=== PATIENT | female | born 1940 | race Caucasian/White ===

== ENCOUNTER 2016-06-23 20:50 | Emergency (ER) ==
[2016-06-23 21:18] VITALS: TEMP 89; BMI 34.9
--- NOTE | 2016-06-23 22:10 | ED.PDOC ---
General ED Provider: Dr. GALDINO HERNANDEZ Chief Complaint: Cardiac Arrest Stated Complaint: Brought by [facility]. Pt. was at latter day. Family said she should have been home so he went there and had to wait for someone to get the yanes to unlock the door. Family says she must have fallen down the stairs and was found face down with no respirations/heart rate. CPR started by [facility] and continued for 29 min. until arrival to [facility] at 2047. CPR in progress. Time Seen by Physician: 22:07 Mode of Arrival: Ambulance Information Source: Family, EMT Exam Limitations: Clinical condition Nursing and Triage Documentation Reviewed and Agree: Yes Cardiac Resuscitation - Cardiac Resuscitation Onset/Duration: Minutes (50), Prior to arrival Witnessed Arrest: No Down-time Before BLS Initiated: 30 Down-time Before ALS Initiated: 30 Airway Prehospital Findings: Reports: Obstructed Breathing Prehospital Findings: Reports: Apnea Circulation/Rhythm Prehospital Findings: Reports: Pulses absent, Asystole Disability/Neurological Prehospital Findings: Reports: Unresponsive Airway Prehospital Intervention: Reports: Chin lift Breathing Prehospital Intervention: Reports: Intubation (with carmel tube ) Circulation/Rhythm Prehospital Intervention: Reports: Chest compressions, Epinephrine (x 5) Airway Prehospital Response: unknown Breathing Prehospital Response: Absent: ETT in airway, Equal breath sounds Circulation/Rhythm Prehospital Response: Present: Pulses absent, Asystole Total Down Time MSW: 30 Airway ED Findings: Patent Breathing ED Findings: Present: Apnea, Respiratory distress Circulation/Rhythm ED Findings: Present: Pulses absent, Asystole Disability/Neurological ED Findings: Present: Unresponsive Airway ED Intervention: Chin lift Breathing ED Intervention: ETT replaced Circulation/Rhythm ED Intervention: Chest compressions, IV/IO placed, Epinephrine Breathing ED Response: ETT in airway, Equal breath sounds, Confirmed by auscultation, Confirmed by CO2 detector Circulation/Rhythm ED Response: Present: Asystole Right Pupil: Fixed, Dilated Left Pupil: Fixed, Dilated Review Of Systems: Unable due to extremis EMS/Code Sheet Reviewed: Yes Patient is a DNR: No Patient Has a Living Will: No Resuscitation Successful: No Terminated At: 2114 Preliminary Cause of : chest trauma with pulmonary hemorrage Differential Diagnoses: Acute IN, Pulmonary Edema, Respiratory Failure, Sudden Past Medical History - Past Medical History Endocrine: Reports: None Cardiovascular: Reports: Hypertension Respiratory: Reports: None Hematological: Reports: None Gastrointestinal: Reports: None Genitourinary: Reports: None Neuro/Psych: Reports: None Musculoskeletal: Reports: None Cancer: Reports: None Last Menstrual Period: menopausal Other Pertinent Past Medical History: Multiple falls at home - Surgical History General Surgical History: Reports: Unknown - Family History Family History: Reports: Unknown - Social History Smoking Status: Unknown if ever smoked Hx Substance Use: No Alcohol Screening: None - Immunizations Tetanus Shot up to Date: No (unknown) Procedures - Intubation Indication: Present: Respiratory Insufficiency Time of Intubation: 21:00 Type of Tube Used: Endotracheal Tube Size: 7.5 Cricoid Pressure Used: No Tube Millan Used: Yes Position of Tube at Lip: 23 Number of Attempts: 1 Glidescope Used: No CO2 Detector Used: Yes Lung Sounds Equal Bilaterally: Yes Intubation Complications: Present: No complications Tube Inserted By: physician Tube Placement Verified by X-ray: Yes Critical Care Note - Critical Care Note Total Time (mins): 30 Comments: after incubation suctioned airway with bloody aspirate totalling 1700ml of bright red blood. Course - Course Orders, Labs, Meds: Orders Category Date Time Status Epinephrine [Epinephrine 1:10,000 Syringe] [facility] 06/23/16 23:59 Stat 1 mg IV ONCE STA Epinephrine [Epinephrine 1:10,000 Syringe] MED 06/24/16 00:00 Stat 1 mg IV ONCE STA Epinephrine [Epinephrine 1:10,000 Syringe] [facility] 06/24/16 00:02 Stat 1 mg IV ONCE STA Epinephrine [Epinephrine 1:10,000 Syringe] MED 06/24/16 00:03 Stat 1 mg IV ONCE STA Epinephrine [Epinephrine 1:10,000 Syringe] MED 06/24/16 00:03 Stat 1 mg IV ONCE STA Epinephrine [Epinephrine 1:10,000 Syringe] MED 06/24/16 00:03 Stat 1 mg IV ONCE STA Epinephrine [Epinephrine 1:10,000 Syringe] [facility] 06/24/16 00:04 Stat 1 mg IV ONCE STA SODIUM CHLORIDE 0.9% @ 1,000 MLS/HR(1,000ml) MEDS 06/24/16 00:04 Ordered Sodium Chloride 0.9% [Sodium Chloride] 1,000 ml IV BOLUS SODIUM CHLORIDE 0.9% @ 1,000 MLS/HR(1,000ml) MED 06/24/16 00:04 Ordered Sodium Chloride 0.9% [Sodium Chloride] 1,000 ml IV BOLUS Sodium Bicarb 7.5% [Sodium Bicarbonate 7.5%] MEDS 06/24/16 00:04 Stat 44.6 meq IVP ONCE STA Sodium Bicarb 7.5% [Sodium Bicarbonate 7.5%] MEDS 06/24/16 00:04 Stat 44.6 meq IVP ONCE STA Sodium Chloride 0.9% [Sodium Chloride] 1,000 ml MEDS 06/24/16 00:04 Ordered IV BOLUS Medications Discontinued Medications Generic Name Dose Route Start Last Admin Trade Name Freq PRN Reason Stop Dose Admin Epinephrine HCl 1 mg 06/23/16 23:59 Epinephrine 1:10,000 Syringe IV 06/24/16 00:00 ONCE STA Epinephrine HCl 1 mg 06/24/16 00:00 Epinephrine 1:10,000 Syringe IV 06/24/16 00:01 ONCE STA Epinephrine HCl 1 mg 06/24/16 00:02 Epinephrine 1:10,000 Syringe IV 06/24/16 00:03 ONCE STA Epinephrine HCl 1 mg 06/24/16 00:03 Epinephrine 1:10,000 Syringe IV 06/24/16 00:04 ONCE STA Epinephrine HCl 1 mg 06/24/16 00:03 Epinephrine 1:10,000 Syringe IV 06/24/16 00:04 ONCE STA Epinephrine HCl 1 mg 06/24/16 00:03 Epinephrine 1:10,000 Syringe IV 06/24/16 00:04 ONCE STA Vital Signs: Temp Pulse Resp BP Pulse Ox 06/23/16 23:39 0 L 0 L 00/00 L 06/23/16 21:02 89 F L 0 L 0 L 0/0 L 0 L Departure - Departure Time of Disposition: 21:15 Disposition: Discharge Problem: Pulmonary hemorrhage, Cardiac arrest Chest wall trauma Qualifiers: Encounter type: initial encounter Qualifier Code: (S29.9XXA) Unspecified injury of thorax, initial encounter Condition: Pt referred to PMD for follow-up: No Disposition Discussed With: Family
[2016-06-23 23:41] VITALS: BP 00/00
[2016-06-23] MEDS ORDERED: EPINEPHRINE 1:10,000 SYRINGE IV STA (23:59)
[2016-06-24] MEDS ORDERED: EPINEPHRINE 1:10,000 SYRINGE IV STA ×6 (00:02→00:04)
[2016-06-24] MEDS ORDERED: SODIUM CHLORIDE 1,000 ML IV STA ×3 (00:04)
[2016-06-24] MEDS ORDERED: SODIUM BICARBONATE 7.5% IVP STA ×2 (00:04)
== END 2016-06-23 21:15 | disposition expired ==
LOC: ED 20:50
DX: R04.89 Hemorrhage from other sites in respiratory passages (principal); I46.9 Cardiac arrest, cause unspecified; S29.9XXA Unspecified injury of thorax, initial encounter; W10.9XXA Fall (on) (from) unspecified stairs and steps, initial encounter; R29.6 Repeated falls
CPT/HCPCS: 96361; 96374; 96375; 99285